=== PATIENT | male | born 1950 | race Caucasian/White ===

== ENCOUNTER 2018-08-21 06:46 | Day surgery (SDC) | payer OTHER ==
[~2018-08-21] VITALS: Ht 167.6 cm; Wt 91.0 kg
[2018-08-21] MEDS ORDERED: blood pressure med (07:56)
[2018-08-21] MEDS ORDERED: metformin (07:56)
[2018-08-21 07:59] VITALS: Ht 167.6 cm; Wt 91.0 kg
[2018-08-21 08:01] VITALS: BP 146/80; RESP 16
[2018-08-21] MEDS ORDERED: MIDAZOLAM 1 MG/ML 2 ML INJ ONE ×2 (09:24)
[2018-08-21] MEDS ORDERED: FENTAnyl 50 MCG/ML VIAL ONE (09:24)
[2018-08-21 09:40] VITALS: BP 133/85; PULSE 80; RESP 23
== END 2018-08-21 12:18 | disposition home or self-care (01) ==
LOC: GIL 06:46
PROVIDERS: ATTEND Internal Medicine Gastroenterology
DX: Z12.11 Encounter for screening for malignant neoplasm of colon (principal); K21.0 Gastro-esophageal reflux disease with esophagitis; D12.0 Benign neoplasm of cecum; K64.4 Residual hemorrhoidal skin tags
CPT/HCPCS: 43239; 45380; 82962; 88305; 88312; 88313; J2250; J3010